=== PATIENT | male | born 1955 | race Caucasian/White ===

== ENCOUNTER 2019-12-04 09:40 | Emergency (ER) | payer OTHER, SELFPAY ==
[~2019-12-04] VITALS: Ht 165.1 cm; Wt 65.2 kg
[2019-12-04 09:45] VITALS: BP 139/79
--- NOTE | 2019-12-04 10:06 | NUR ---
PT HERE WITH C/O LEFT ELBOW PAIN X 1 WEEK, STATES PAIN STARTED WHEN THROWING TRASH AWAY AT HIS JOB.
--- NOTE | 2019-12-04 11:11 | NUR ---
Patient/Caregiver given discharge instructions and they have confirmed that they understand the instructions. Patient ambulatory with steady gait.
== END 2019-12-04 11:13 | disposition home or self-care (01) ==
LOC: ED 11:05
DX: M77.12 Lateral epicondylitis, left elbow (principal); F17.210 Nicotine dependence, cigarettes, uncomplicated
CPT/HCPCS: 99283